=== PATIENT | female | born 1955 | race Caucasian/White ===

== ENCOUNTER 2020-01-19 18:11 | Emergency (ER) | payer BC, MEDICAID, MEDICARE ==
[2020-01-19 18:38] VITALS: BP 139/42
--- NOTE | 2020-01-19 19:11 | UC ---
General HPI - HPI Summary HPI Summary: Here with daughter - patient states two days of bodyaches, chills and congestion. Productive cough - she has been taking tessalon pearls as needed. Is not using her inhaler more than normal. Slept most of the day today because she has felt so unwell. Diarrhea once last night. No abdominal pain. No N/V. No chest pain. She's also c/o numbness tingling around her mouth. No lip swelling, no throat swelling. It comes and goes. Not present currently. Thought it may correlated to when she took the tessalon pearls. No weakness or numbness elsewhere. No falls. Ambulates with a cane. Independent of ADLs. Meds: reviewed - History of Current Complaint Chief Complaint: UCRespiratory Stated Complaint: FACIAL NUMBNESS,BODY ACHES Time Seen by Provider: 01/19/20 18:44 Pain Intensity: 0 - Allergy/Home Medications Allergies/Adverse Reactions: Allergies Allergy/AdvReac Type Severity Reaction Status Date / Time No Known Allergies Allergy Verified 02/11/16 13:09 Home Medications: Home Medications Aspirin EC TAB* [Ecotrin EC TAB*] 325 mg PO DAILY 02/11/16 [History Confirmed ] Atorvastatin* [Lipitor 40 MG*] 40 mg PO DAILY 02/11/16 [History Confirmed ] Fenofibrate [Tricor 160 MG] 160 mg PO DAILY 02/11/16 [History Confirmed 02/11/16 ] Furosemide TAB* [Lasix TAB*] 20 mg PO DAILY 02/11/16 [History Confirmed 02/11/16 ] Gabapentin CAP(*) [Neurontin 300 CAP(*)] 900 mg PO TID 02/11/16 [History Confirmed 02/11/16] Nystatin CREAM* [Nystatin Cream*] 1 applic TOPICAL BID 02/11/16 [History Confirmed 02/11/16] [id number] Ethyl Esters (NF) [Lovaza (NF)] 2 gm PO BID 02/11/16 [History Confirmed 02/11/16] Ranitidine TAB (NF) [Zantac TAB (NF)] 150 mg PO BID 02/11/16 [History Confirmed 02/11/16] Amoxicillin/Clavulanate TAB* [Augmentin TAB 875*] 875 mg PO BID #9 tab 01/19/20 [Rx] Bumetanide TAB* [Bumex 1 MG TAB*] 1 mg PO DAILY 01/19/20 [History Confirmed 07/02] Ferrous Sulfate [Ferosul] 325 mg PO DAILY 01/19/20 [History Confirmed 01/19/20] Insulin Aspart Prot/Insuln Asp [Novolog Mix 70-30 Flexpen 3 ML x 5 PENS] 80 units SUBCUT DAILY 01/19/20 [History Confirmed 01/19/20] Insulin Aspart [Novolog 100 UNITS/ML 10 ML VIAL] 10 unit SUBCUT TID 01/19/20 [ History Confirmed 01/19/20] PMH/Surg Hx/FS Hx/Imm Hx Previously Healthy: No - morbidly obese Endocrine History: Diabetes, Dyslipidemia - Surgical History Surgical History: Yes Surgery Procedure, Year, and Place: hysterectomy, hernia repair, appendectomy - Family History Known Family History: Positive: Unknown - Social History Alcohol Use: Rare Substance Use Type: None Smoking Status (MU): Never Smoked Tobacco - Immunization History Most Recent Influenza Vaccination: 2012 Most Recent Tetanus Shot: unknown Most Recent Pneumonia Vaccination: Believes 3 years ago Review of Systems All Other Systems Reviewed And Are Negative: Yes Constitutional: Positive: Fever, Chills ENT: Positive: Sore Throat, Sinus Congestion Respiratory: Positive: Cough Gastrointestinal: Positive: Diarrhea Physical Exam Triage Information Reviewed: Yes Appearance: Other: - mildly ill appearing Vital Signs: Initial Vital Signs Temp 98.6 F 01/19/20 18:18 Pulse 72 01/19/20 18:18 Resp 18 01/19/20 18:18 BP 139/42 01/19/20 18:18 Pulse Ox 96 01/19/20 18:18 Eyes: Positive: Conjunctiva Clear ENT: Positive: Pharyngeal erythema, Nasal drainage Neck: Positive: Supple, Nontender Respiratory: Positive: Lungs clear, Decreased breath sounds, Other: - limited exam due to obesity Cardiovascular: Positive: No Murmur, Other: - systolic murmur present Neurological Exam: Normal, Other - no facial numbness or sensation deficit Course/Dx - Course Course Of Treatment: This is a 65 yr old with several co-morbidities and morbidly obese who presents with flu like illness Flu: negative CXR: Possible infiltrate in right middle lobe, increase opacity First dose of augmentin given this evening Plan Start Augmentin as prescribed -start in the morning Continue Albuterol inhaler as needed for cough Continue with nasal spray and decongestant If symptoms persist or worsen over the next 1-2 days recommend follow up with your PCP or go to the ER If you develop Shortness of breath or chest pain, go to the ER - Diagnoses Provider Diagnosis: Pneumonia Discharge ED - Sign-Out/Discharge Documenting (check all that apply): Patient Departure All imaging exams completed and their final reports reviewed: No - Discharge Plan Condition: Fair Disposition: HOME Prescriptions: Amoxicillin/Clavulanate TAB* [Augmentin TAB 875*] 875 mg PO BID #9 tab Patient Education Materials: Pneumonia (ED) Referrals: Khris Vital MD [Primary Care Provider] - Additional Instructions: Start Augmentin as prescribed -start in the morning Continue Albuterol inhaler as needed for cough Continue with nasal spray and decongestant If symptoms persist or worsen over the next 1-2 days recommend follow up with your PCP or go to the ER If you develop Shortness of breath or chest pain, go to the ER - Billing Disposition and Condition Condition: FAIR Disposition: Home
[2020-01-19 19:13] LABS: Influenza A Molecular Negative (Negative); Influenza B Molecular Negative (Negative)
[2020-01-19] MEDS ORDERED: Amoxicillin/Clavulanate TAB* 875 MG PO ONE (19:31)
== END 2020-01-19 19:38 | disposition home or self-care (01) ==
LOC: UCEAST 18:11
DX: J18.9 Pneumonia, unspecified organism (principal); E11.9 Type 2 diabetes mellitus without complications; E78.5 Hyperlipidemia, unspecified; Z79.899 Other long term (current) drug therapy; Z79.4 Long term (current) use of insulin; Z79.82 Long term (current) use of aspirin
CPT/HCPCS: 71046; 99202; A9270-GY; G0463